=== PATIENT | female | born 1980 | race Caucasian/White ===

== ENCOUNTER 2017-10-20 00:16 | Outpatient (CLI) | payer MEDICARE, MEDICAID ==
[~2017-10-20 00:16] MED LIST: ASPI-128 PO; BUPR150T26 PO; BUSP30TA3 PO; ETHY1TAB6 PO; HYDR-3972 PO; META800T87 PO; PANT-47 PO; SIMV20TA5 PO; SUMA100T16 PO; SYN0.0125T PO; TRAZ-143 PO; ZIPR80CA2 PO
== END 2017-10-20 23:59 | disposition home or self-care (01) ==
LOC: DIABETIC 00:16
PROVIDERS: ATTEND Family Medicine
DX: E66.9 Obesity, unspecified (principal); Z71.3 Dietary counseling and surveillance; Z68.42 Body mass index [BMI] 45.0-49.9, adult; F50.89 Other specified eating disorder
CPT/HCPCS: G0108

== ENCOUNTER 2017-12-02 02:48 | Outpatient (CLI) | payer MEDICARE, MEDICAID | END 2017-12-02 23:59 | disposition home or self-care (01) | LOC: DIABETIC 02:48 | PROVIDERS: ATTEND Family Medicine | DX: F50.89 Other specified eating disorder (principal); Z71.3 Dietary counseling and surveillance | CPT/HCPCS: 97802 ==

== ENCOUNTER 2017-12-04 16:06 | Emergency (ER) | payer MEDICARE, MEDICAID ==
[~2017-12-04] VITALS: Ht 157.5 cm; Wt 146.5 kg
[2017-12-04 16:16] VITALS: BP 155/89
[2017-12-04] MEDS ORDERED: HYDROcodone/acetaminophen 5mg/325mg tablet PO ONE (17:00)
[2017-12-04] MEDS ORDERED: ketorolac trometh inj. 60 MG/2 ML VIAL IM ONE (17:00)
[2017-12-04] MEDS ORDERED: dexamethasone sod phosphate 10mg/ml inj IM STA (17:03)
== END 2017-12-04 17:43 | disposition home or self-care (01) ==
LOC: ER 16:07
DX: G89.29 Other chronic pain (principal); M54.2 Cervicalgia; M79.602 Pain in left arm; E03.9 Hypothyroidism, unspecified; Z88.8 Allergy status to other drugs, medicaments and biological substances; Z79.82 Long term (current) use of aspirin; Z79.899 Other long term (current) drug therapy; W19.XXXA Unspecified fall, initial encounter; Y93.89 Activity, other specified; Y92.89 Other specified places as the place of occurrence of the external cause; Y99.8 Other external cause status
CPT/HCPCS: 96372; 99284; J1100; J1885

== ENCOUNTER 2018-03-12 03:43 | Outpatient (CLI) | payer MEDICARE, MEDICAID ==
[~2018-03-12 03:43] MED LIST changes: +DICY10CA88 PO; -TRAZ-143 PO; +TRAZ-218 PO
== END 2018-03-12 23:59 | disposition home or self-care (01) ==
LOC: DIABETIC 03:43
PROVIDERS: ATTEND Family Medicine
DX: F50.9 Eating disorder, unspecified (principal); Z71.3 Dietary counseling and surveillance; F31.9 Bipolar disorder, unspecified; Z98.84 Bariatric surgery status; Z84.89 Family history of other specified conditions; Z72.89 Other problems related to lifestyle
CPT/HCPCS: 97802

== ENCOUNTER 2018-04-14 00:37 | Outpatient (CLI) | payer MEDICARE, MEDICAID ==
[~2018-04-14 00:37] MED LIST changes: -DICY10CA88 PO
== END 2018-04-14 23:59 | disposition home or self-care (01) ==
LOC: DIABETIC 00:37
PROVIDERS: ATTEND Family Medicine
DX: Z71.3 Dietary counseling and surveillance (principal); E66.01 Morbid (severe) obesity due to excess calories; Z68.41 Body mass index [BMI] 40.0-44.9, adult; F50.9 Eating disorder, unspecified; Z98.84 Bariatric surgery status
CPT/HCPCS: 97802

== ENCOUNTER 2018-08-16 12:54 | Emergency (ER) | payer MEDICARE, MEDICAID ==
--- NOTE | 2018-08-16 13:34 | NUR ---
PT CALLED TO TRIAGE x3, NIL, PROVIDER NOTIFIED, NO FURTHER ACTION REQUIRED
== END 2018-08-16 13:34 | disposition left against medical advice (07) ==
LOC: ER 12:55
DX: M54.9 Dorsalgia, unspecified (principal); Z53.21 Procedure and treatment not carried out due to patient leaving prior to being seen by health care provider

== ENCOUNTER 2024-08-09 06:46 | Outpatient (CLI) | payer MEDICARE, MEDICAID ==
[~2024-08-09 06:46] MED LIST changes: +SIMV-42 PO; -SIMV20TA5 PO; -TRAZ-218 PO; +TRAZ-251 PO
== END 2024-08-09 23:59 | disposition home or self-care (01) ==
LOC: MRI02 06:46
PROVIDERS: ATTEND Podiatrist Foot & Ankle Surgery
DX: M19.071 Primary osteoarthritis, right ankle and foot (principal); M72.2 Plantar fascial fibromatosis; M77.8 Other enthesopathies, not elsewhere classified; M79.671 Pain in right foot; M25.571 Pain in right ankle and joints of right foot; M20.41 Other hammer toe(s) (acquired), right foot; G57.61 Lesion of plantar nerve, right lower limb; M79.672 Pain in left foot
CPT/HCPCS: 73718; 73721